=== PATIENT | male | born 1980 ===

== ENCOUNTER 2017-09-12 11:40 | Emergency (ER) | payer OTHER, SELFPAY ==
[2017-09-12 11:40] VITALS: BMI 28.3
[2017-09-12 11:57] VITALS: BP 117/80; PULSE 83; RESP 18; TEMP 98.1; O2SAT 99
--- NOTE | 2017-09-12 12:30 | C.PDOC ---
History Of Present Illness 37 year old male patient presents to the ER with complains of itchiness and redness of right eye with clear discharge since yesterday. Patient denies trauma , fever, visual changes, and does not wear contacts. Patient came into contact with co-worker with pink eye, and his boss instructed him to not come back due to fear of it being contagious. Time Seen by Provider: 09/12/17 12:01 Chief Complaint (Nursing): Eye Problem History Per: Patient History/Exam Limitations: no limitations Onset/Duration Of Symptoms: Hrs Current Symptoms Are (Timing): Still Present Injury To Eye?: No Wears Contact Lens?: No Associated Symptoms: Itching, Discharge From Eye (clear), Other (itchiness ). denies: Decreased Vision Past Medical History Reviewed: Historical Data, Nursing Documentation, Vital Signs Vital Signs: Last Vital Signs Temp 98.1 F 09/12/17 11:55 Pulse 83 09/12/17 11:55 Resp 18 09/12/17 11:55 BP 117/80 09/12/17 11:55 Pulse Ox 99 09/12/17 14:06 - [facility] CIRCUMCISION (07/17/12) Family History: States: No Known Family Hx - Social History Hx Alcohol Use: No Hx Substance Use: Yes Review Of Systems Constitutional: Negative for: Fever Eyes: Positive for: Redness, Other (itchy right eye and clear discharge ). Negative for: Vision Change Physical Exam - Physical Exam Appears: Non-toxic, No Acute Distress Skin: Normal Color, Warm, Dry Eye(s): bilateral: Normal Inspection, PERRL, EOMI, right: Other (No periorbital erythema or swelling) Neck: Normal ROM, Supple Chest: Symmetrical, No Deformity Cardiovascular: Rhythm Regular Respiratory: Normal Breath Sounds, No Rales, No Rhonchi, No Wheezing ED Course And Treatment O2 Sat by Pulse Oximetry: 99 (RA) Pulse Ox Interpretation: Normal Progress Note: Patient was given prescription antibiotics eye drops and a work note. Disposition Counseled Patient/Family Regarding: Diagnosis, Need For Followup, Rx Given - Disposition Referrals: [facility] [Outside] Disposition: HOME/ ROUTINE Disposition Time: 12:30 Condition: STABLE Additional Instructions: FOLLOW UP WITH YOUR DOCTOR OR IN MEDICAL CLINIC IN 1-2 DAYS USE MEDICATION DIRECTED RETURN TO EMERGENCY ROOM IF SYMPTOMS WORSEN SEGUIMIENTO CON [place] MDICO O EN CORI CLNICA MDICA EN 1-2 SALOMON USE MEDICAMENTOS SEGN SE INDICA REGRESE AL BREANNA DE EMERGENCIA SI LOS SNTOMAS EMPEORAN Prescriptions: Ofloxacin Ophth 0.3% [Ocuflox Ophth 0.3%] 1 drop GT Q4 #1 bottle Instructions: Conjunctivitis (Pinkeye) (DC) Forms: Cswitch (Syriac), Work Excuse Print Language: KHMER - Clinical Impression Clinical Impression: Conjunctivitis - Scribe Statement The provider has reviewed the documentation as recorded by the Scribe [place] Do Provider Attestation: All medical record entries made by the Scribe were at my direction and personally dictated by me. I have reviewed the chart and agree that the record accurately reflects my personal performance of the history, physical exam, medical decision making, and the department course for this patient. I have also personally directed, reviewed, and agree with the discharge instructions and disposition.
== END 2017-09-12 12:40 | disposition home or self-care (01) ==
LOC: C.ER 11:40
DX: H10.9 Unspecified conjunctivitis (principal)